=== PATIENT | male | born 1960 | race Caucasian/White ===

== ENCOUNTER 2017-03-14 19:15 | Emergency (ER) | payer SELFPAY ==
[~2017-03-14] VITALS: Ht 177.8 cm; Wt 85.7 kg
[2017-03-14 19:31] VITALS: BP 124/72; PULSE 89; RESP 12; TEMP 97.8; O2SAT 97
[2017-03-14] MEDS ORDERED: KETOROLAC TROMETHAMINE 30 MG/ML (IVP) VIAL IV PUSH ONE (20:15)
[2017-03-14] MEDS ORDERED: CLINDAMYCIN INJ 900 MG in SODIUM CHLORIDE 0.9% INJ 100 ML IV ONE (20:15)
[2017-03-14] MEDS ORDERED: SODIUM CHLORIDE 0.9% FLUSH 10 ML FLUSH IVF PRN (20:15)
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
[2017-03-14 20:40] LABS: AUTOMATED NEUTROPHIL # 8.7 TH/MM3 (1.8-7.7); BASOPHIL # 0.4 TH/MM3 (0-0.2); BASOPHIL % 3.4 % (0.0-2.0); EOSINOPHIL # 0.4 TH/MM3 (0-0.4); EOSINOPHIL % 3.2 % (0.0-4.0); HEMATOCRIT 44.5 % (39.0-51.0); HEMO FLAGS DIFF FINAL; LYMPH % 16.9 % (9.0-44.0); LYMPHOCYTE # 2.2 TH/MM3 (1.0-4.8); MEAN CELL VOLUME 88.8 FL (80.0-100.0); MEAN CORPUSCULAR HGB CONC 33.8 % (32.0-36.0); MONO % 10.7 % (0.0-8.0); NEUT % 65.8 % (16.0-70.0); PLATELET COUNT 258 TH/MM3 (150-450); RED BLOOD COUNT 5.01 MIL/MM3 (4.50-5.90); RED CELL DISTRIBUTION WIDTH 12.2 % (11.6-17.2); WHITE BLOOD COUNT 13.1 TH/MM3 (4.0-11.0)
[2017-03-14 20:52] LABS: BICARBONATE 27.2 MEQ/L (21.0-32.0)
[2017-03-14 21:12] LABS: POTASSIUM 4.3 MEQ/L (3.5-5.1)
[2017-03-14] MEDS ORDERED: SODIUM CHLOR 0.9% 1000 ML INJ 1,000 ML IV ONE (21:45)
[2017-03-14 21:51] LABS: INTERNATIONAL NORMALIZED RATIO 0.9 RATIO; PROTHROMBIN TIME - PATIENT 10.2 SEC (9.8-11.6)
--- NOTE | 2017-03-14 22:09 | RADRPT ---
EXAM DATE/TIME: 03/14/2017 21:36 [facility] COMPARISON: No previous studies available for comparison. INDICATIONS : Right elbow pain. MEDICAL HISTORY : None. SURGICAL HISTORY : None. ENCOUNTER: Initial ACUITY: 2 weeks PAIN SCORE: 8/10 LOCATION: Right elbow. FINDINGS: Mild degenerative changes are noted involving the right elbow joint. There is no acute fracture or di slocation in right elbow. No elbow joint effusion is noted. Mild soft tissue swelling is noted. CONCLUSION: 1. Mild degenerative changes involving right elbow joint. 2. No acute fracture, dislocation or elbow joint effusion. 3. Mild soft tissue swelling is noted. Young Rodrigez MD on March 14, 2017 at 22:06 Board Certified Radiologist. This report was verified electronically.
[2017-03-14 22:24] VITALS: BP 119/62; PULSE 79; RESP 16; TEMP 97.8; O2SAT 98
[2017-03-14] MEDS ORDERED: CLIN1CAP5 PO (22:27)
== END 2017-03-14 22:37 | disposition home or self-care (01) ==
LOC: PHEFT 19:15
DX: L03.113 Cellulitis of right upper limb (principal); M71.121 Other infective bursitis, right elbow; V19.9XXA Pedal cyclist (driver) (passenger) injured in unspecified traffic accident, initial encounter; Y93.55 Activity, bike riding; M79.1 Myalgia
CPT/HCPCS: 73080; 80048; 85025; 85610; 85652; 85730; 86140; 96361; 96365; 96375; 99284; J1885; J7030